=== PATIENT | female | born 1955 | race Caucasian/White ===

== ENCOUNTER 2018-01-25 16:33 | Emergency (ER) | payer SELFPAY ==
[~2018-01-25] VITALS: Ht 162.5 cm; Wt 54.4 kg
[~2018-01-25 16:33] MED LIST: MOTRIN800 MG PO; NORFLEX100 MG PO; PRILOSEC20 MG PO
[2018-01-25 16:56] LABS: BILIRUBIN NEGATIVE (NEGATIVE); BLOOD NEGATIVE (NEGATIVE); CLARITY CLEAR (CLEAR); COLOR YELLOW (YELLOW); GLUCOSE NEGATIVE (NEGATIVE); KETONE NEGATIVE (NEGATIVE); LEUKO ESTERASE NEGATIVE (NEGATIVE); NITRITE NEGATIVE (NEGATIVE); SPECIFIC GRAVITY <= 1.005 (1.005-1.030); UROBILINOGEN 0.2 E.U./dl (0.2-1.0)
[2018-01-25 17:07] LABS: BACTERIA 1+; EPITHELIAL CELLS 16-20; WBC 0-2 wbc/hpf (0-5)
[2018-01-25] MEDS ORDERED: NAPROSYN500 MG PO (17:44)
[2018-01-25] MEDS ORDERED: CYCLOBENZAPRINE5 M3 PO (17:44)
[2018-01-25] MEDS ORDERED: ULTRAM50 MG PO (17:46)
== END 2018-01-25 17:53 | disposition home or self-care (01) ==
LOC: ED 16:33
PROVIDERS: Physician Assistant
DX: M48.56XA Collapsed vertebra, not elsewhere classified, lumbar region, initial encounter for fracture (principal); Z88.6 Allergy status to analgesic agent; Z79.899 Other long term (current) drug therapy; X50.0XXA Overexertion from strenuous movement or load, initial encounter; Y93.89 Activity, other specified; Y92.69 Other specified industrial and construction area as the place of occurrence of the external cause; Y99.8 Other external cause status